=== PATIENT | male | born 1960 | race Caucasian/White ===

== ENCOUNTER 2019-07-28 20:39 | Emergency (ER) | payer MEDICARE ==
[~2019-07-28] VITALS: Ht 180.3 cm; Wt 67.1 kg
[~2019-07-28 20:39] MED LIST: ACET-2154 PO; BISA10SU12 RC; FURO-152 PO; HYDR-3326 PO; LEVO150T8 PO; LORA-258 PO; MAGN400O6 PO; NA P133E RC; NICOTINE PATCH TD; RIVA10TA PO
--- NOTE | 2019-07-28 21:27 | NUR ---
ER at bedside
[2019-07-28 21:45] LABS: BASOPHILS # (AUTO) 0.1 K/uL (0.0-8.0); BASOPHILS % (AUTO) 0.5 % (0.0-2.0); EOSINOPHILS # (AUTO) 0.2 K/uL (0.0-0.7); EOSINOPHILS % (AUTO) 2.1 % (0.0-7.0); HEMOGLOBIN 12.9 g/dL (12.5-16.3); LYMPHOCYTES # (AUTO) 1.8 K/uL (20.0-40.0); LYMPHOCYTES % (AUTO) 17.6 % (20.5-51.5); MEAN CORPUSCULAR HEMOGLOBIN 28.9 uug (23.8-33.4); MEAN CORPUSCULAR HGB CONC 33 g/dL (32.5-36.3); MEAN CORPUSCULAR VOLUME 87.7 fL (73.0-96.2); MONOCYTES # (AUTO) 0.8 K/uL (2.0-10.0); MONOCYTES % (AUTO) 8.4 % (0.0-11.0); NEUTROPHILS # (AUTO) 7.2 K/uL (1.8-8.9); NEUTROPHILS % (AUTO) 71.4 % (38.5-71.5); PLATELET COUNT (AUTO) 519 K/uL (152-348); RED BLOOD CELL COUNT(AUTO) 4.45 MIL/uL (4.06-5.63); WHITE BLOOD COUNT (AUTO) 10.1 K/uL (3.6-10.2)
--- NOTE | 2019-07-28 21:52 | NUR ---
Xray at bedside
[2019-07-28 21:59] LABS: BILIRUBIN,DIRECT 0.1 mg/dL (0.0-0.2); BILIRUBIN,TOTAL 0.2 mg/dL (0.2-1.0); TOTAL PROTEIN, SERUM 6.9 g/dL (6.4-8.2)
[2019-07-28] MEDS ORDERED: SWABABLE VALVE TRANSFER SET EA MC ONE (21:59)
[2019-07-28] MEDS ORDERED: IOHEXOL 350 100 ML INFUS..BTL ONE (21:59)
[2019-07-28] MEDS ORDERED: IV NORMAL SALINE 250 ML IV ONE (21:59)
--- NOTE | 2019-07-28 23:06 | NUR ---
Patient in bed, no acute distress noted. All patient needs attended and met. Call light is within reach. Will continue to monitor patient. Frequent patient assessment ongoing with visual checks in place. Fall precautions per protocol. VSS
--- NOTE | 2019-07-28 23:28 | NUR ---
CT IV contrast consent complete and palced in chart. Patient taken to CT at this time.
--- NOTE | 2019-07-28 23:50 | NUR ---
Patient back from CT. Well tolerated/ No ASE noted. VSS
--- NOTE | 2019-07-29 00:14 | NUR ---
Patient is agitated, screaming, states " I will leave soon, I do not want motrin. I want something stronger!". Patient came up to the nursing station and began screaming at staff. Patient was assisted back to room,, provided with a blanket and provided with an explanation regarding his plan of care.
--- NOTE | 2019-07-29 01:03 | NUR ---
Patient refused all homeless resources. Patient refused to sign discharge paperwork , refused to sign homeless check list.
--- NOTE | 2019-07-29 01:04 | NUR ---
Patient discharged to home in stable conditon. Written and verbal after care instructions given. Patient verbalizes understanding of instructions. Peripheral IV removed prior to d/c. All belongings with patient. Security called to bedside as patient is refusing to leave the ER.
[2019-07-29 01:10] VITALS: BP 127/80
== END 2019-07-29 01:11 | disposition home or self-care (01) ==
LOC: ER 20:42
DX: S22.41XA Multiple fractures of ribs, right side, initial encounter for closed fracture (principal); K76.9 Liver disease, unspecified; I10 Essential (primary) hypertension; F41.9 Anxiety disorder, unspecified; E03.9 Hypothyroidism, unspecified; Z59.0 Homelessness; Z79.899 Other long term (current) drug therapy; W19.XXXA Unspecified fall, initial encounter; Y93.89 Activity, other specified; Y92.89 Other specified places as the place of occurrence of the external cause; Y99.8 Other external cause status
CPT/HCPCS: 36415; 71045; 71275; 74177; 80048; 80076; 83690; 84484; 85025; 85379; 93005; 99284; Q9967; 70030-TC; A4663; J7050